=== PATIENT | male | born 1980 | race Caucasian/White ===

== ENCOUNTER 2018-10-28 15:02 | Emergency (ER) | payer MEDICAID ==
[~2018-10-28] VITALS: Ht 172.7 cm; Wt 100.0 kg
[~2018-10-28 15:02] MED LIST: CLON-527 PO; HYDR-4353 PO; METH-603 PO
[2018-10-28 15:22] VITALS: BP 135/77
== END 2018-10-28 16:21 | disposition home or self-care (01) ==
LOC: ER 15:03
DX: S90.822A Blister (nonthermal), left foot, initial encounter (principal); J45.909 Unspecified asthma, uncomplicated; G89.29 Other chronic pain; Z98.890 Other specified postprocedural states; Z79.899 Other long term (current) drug therapy; X58.XXXA Exposure to other specified factors, initial encounter; Y93.89 Activity, other specified; Y92.89 Other specified places as the place of occurrence of the external cause; Y99.8 Other external cause status
CPT/HCPCS: 99282

== ENCOUNTER 2018-11-17 17:43 | Emergency (ER) | payer MEDICAID ==
[~2018-11-17] VITALS: Ht 182.9 cm; Wt 102.0 kg
[2018-11-17 17:56] VITALS: BP 144/86
[2018-11-17] MEDS ORDERED: NICO-687 TOP (18:20)
== END 2018-11-17 18:39 | disposition home or self-care (01) ==
LOC: ER 17:43
DX: F19.10 Other psychoactive substance abuse, uncomplicated (principal); F12.90 Cannabis use, unspecified, uncomplicated; F15.90 Other stimulant use, unspecified, uncomplicated; F11.90 Opioid use, unspecified, uncomplicated; J45.909 Unspecified asthma, uncomplicated; G89.29 Other chronic pain; F17.200 Nicotine dependence, unspecified, uncomplicated; Z79.899 Other long term (current) drug therapy
CPT/HCPCS: 99282

== ENCOUNTER 2018-11-21 13:28 | Emergency (ER) | payer MEDICAID ==
[~2018-11-21] VITALS: Ht 182.9 cm; Wt 81.4 kg
[~2018-11-21 13:28] MED LIST changes: +NICO-687 TOP
[2018-11-21 13:45] VITALS: BP 121/84
[2018-11-21] MEDS ORDERED: SERT25TA PO (14:43)
[2018-11-21] MEDS ORDERED: ATOM40CA PO (14:43)
[2018-11-21] MEDS ORDERED: sertraline 50mg tablet PO ONE (14:45)
== END 2018-11-21 15:05 | disposition home or self-care (01) ==
LOC: ER 13:29
DX: R51 Headache (principal); J45.909 Unspecified asthma, uncomplicated; G89.29 Other chronic pain; F12.90 Cannabis use, unspecified, uncomplicated; F15.90 Other stimulant use, unspecified, uncomplicated; Z76.0 Encounter for issue of repeat prescription; Z98.890 Other specified postprocedural states; Z79.899 Other long term (current) drug therapy
CPT/HCPCS: 99283

== ENCOUNTER 2019-02-25 11:12 | Emergency (ER) | payer MEDICAID ==
[~2019-02-25] VITALS: Ht 182.9 cm; Wt 98.0 kg
[~2019-02-25 11:12] MED LIST changes: +ATOM40CA PO; -NICO-687 TOP; +SERT25TA PO
[2019-02-25 11:15] VITALS: BP 121/84
== END 2019-02-25 11:49 | disposition home or self-care (01) ==
LOC: ER 11:12
DX: Z02.89 Encounter for other administrative examinations (principal); J45.909 Unspecified asthma, uncomplicated; G89.29 Other chronic pain; F12.90 Cannabis use, unspecified, uncomplicated; F15.90 Other stimulant use, unspecified, uncomplicated; Z79.899 Other long term (current) drug therapy
CPT/HCPCS: 99281

== ENCOUNTER 2019-04-15 17:21 | Emergency (ER) | payer MEDICAID ==
[~2019-04-15] VITALS: Ht 185.4 cm; Wt 94.0 kg
[2019-04-15 17:33] VITALS: BP 139/89
[2019-04-15] MEDS ORDERED: ciprofloxacin 0.3% 2.5ml ophthalmic solution RIGHTEYE ONE (18:55)
== END 2019-04-15 19:33 | disposition left against medical advice (07) ==
LOC: ER 17:21
DX: S05.11XA Contusion of eyeball and orbital tissues, right eye, initial encounter (principal); J45.909 Unspecified asthma, uncomplicated; G89.29 Other chronic pain; F12.90 Cannabis use, unspecified, uncomplicated; F15.90 Other stimulant use, unspecified, uncomplicated; F19.90 Other psychoactive substance use, unspecified, uncomplicated; Z79.899 Other long term (current) drug therapy; W26.9XXA Contact with unspecified sharp object(s), initial encounter; Y93.89 Activity, other specified; Y92.89 Other specified places as the place of occurrence of the external cause; Y99.8 Other external cause status
CPT/HCPCS: 99282

== ENCOUNTER 2019-05-30 03:07 | Emergency (ER) | payer MEDICAID ==
[~2019-05-30] VITALS: Ht 182.9 cm; Wt 86.4 kg
[2019-05-30 03:08] VITALS: BP 143/98
[2019-05-30] MEDS ORDERED: ondansetron 4mg rapidly disintigrating tab PO ONE (03:45)
[2019-05-30] MEDS ORDERED: cephalexin 250mg capsule PO ONE (03:45)
[2019-05-30] MEDS ORDERED: DOXYCYCLINE 100MG CAPSULE PO STA (03:45)
[2019-05-30] MEDS ORDERED: CEPH250T PO (03:47)
[2019-05-30] MEDS ORDERED: DOXY100C77 PO (03:47)
== END 2019-05-30 04:03 | disposition home or self-care (01) ==
LOC: ER 03:08
DX: L03.113 Cellulitis of right upper limb (principal); J45.909 Unspecified asthma, uncomplicated; G89.29 Other chronic pain; F12.90 Cannabis use, unspecified, uncomplicated; F15.90 Other stimulant use, unspecified, uncomplicated; Z98.890 Other specified postprocedural states; Z79.899 Other long term (current) drug therapy
CPT/HCPCS: 99284

== ENCOUNTER 2019-06-04 23:28 | Emergency (ER) | payer MEDICAID ==
[~2019-06-04] VITALS: Ht 182.9 cm; Wt 86.4 kg
[~2019-06-04 23:28] MED LIST changes: +CEPH250T PO; +DOXY100C77 PO
[2019-06-04 23:36] VITALS: BP 133/89
== END 2019-06-05 00:14 | disposition home or self-care (01) ==
LOC: ER 23:28
DX: L03.011 Cellulitis of right finger (principal); F41.9 Anxiety disorder, unspecified; G89.29 Other chronic pain; F12.90 Cannabis use, unspecified, uncomplicated; F15.90 Other stimulant use, unspecified, uncomplicated; Z79.899 Other long term (current) drug therapy; Z98.890 Other specified postprocedural states; Z86.19 Personal history of other infectious and parasitic diseases; Z00.00 Encounter for general adult medical examination without abnormal findings; Z02.89 Encounter for other administrative examinations
CPT/HCPCS: 99281

== ENCOUNTER 2019-07-23 18:27 | Emergency (ER) | payer MEDICAID ==
[~2019-07-23] VITALS: Ht 182.9 cm; Wt 79.5 kg
[~2019-07-23 18:27] MED LIST changes: -DOXY100C77 PO
[2019-07-23 18:34] VITALS: BP 100/65
[2019-07-23 19:39] LABS: HIV ANTIBODY 1&2 RAPID NON-REACTIVE (Neg)
[2019-07-25 08:12] LABS: HEP B CORE AB, IGM Negative (Negative); HEP B CORE AB, TOT Negative (Negative); HEPATITIS C ANTIBODY >11.0 s/co ratio (0.0-0.9)
== END 2019-07-23 19:46 | disposition home or self-care (01) ==
LOC: ER 18:27
DX: Z00.00 Encounter for general adult medical examination without abnormal findings (principal); J45.909 Unspecified asthma, uncomplicated; G89.29 Other chronic pain; F12.90 Cannabis use, unspecified, uncomplicated; F15.90 Other stimulant use, unspecified, uncomplicated; F19.90 Other psychoactive substance use, unspecified, uncomplicated; Z86.19 Personal history of other infectious and parasitic diseases; Z79.2 Long term (current) use of antibiotics; Z79.899 Other long term (current) drug therapy
CPT/HCPCS: 36415; 86703; 86704; 86705; 86706; 86803; 99283

== ENCOUNTER 2019-09-13 15:41 | Emergency (ER) | payer MEDICAID ==
[~2019-09-13] VITALS: Ht 182.9 cm; Wt 81.8 kg
[2019-09-13 15:51] VITALS: BP 126/73
[2019-09-13] MEDS ORDERED: MUPI22OI30 TP (16:08)
[2019-09-13] MEDS ORDERED: SULF1TAB49 PO (16:08)
== END 2019-09-13 16:17 | disposition home or self-care (01) ==
LOC: ER 15:42
DX: L02.414 Cutaneous abscess of left upper limb (principal); L98.9 Disorder of the skin and subcutaneous tissue, unspecified; J45.909 Unspecified asthma, uncomplicated; G89.29 Other chronic pain; F12.90 Cannabis use, unspecified, uncomplicated; F15.90 Other stimulant use, unspecified, uncomplicated; F17.200 Nicotine dependence, unspecified, uncomplicated; Z86.19 Personal history of other infectious and parasitic diseases; Z79.2 Long term (current) use of antibiotics; Z79.899 Other long term (current) drug therapy
CPT/HCPCS: 99283

== ENCOUNTER 2019-11-23 13:42 | Emergency (ER) | payer MEDICAID ==
[~2019-11-23] VITALS: Ht 177.8 cm; Wt 90.0 kg
[2019-11-23 13:45] VITALS: BP 135/91
== END 2019-11-23 14:26 | disposition home or self-care (01) ==
LOC: ER 13:43
DX: F15.10 Other stimulant abuse, uncomplicated (principal); J45.909 Unspecified asthma, uncomplicated; G89.29 Other chronic pain; F12.90 Cannabis use, unspecified, uncomplicated; Z86.19 Personal history of other infectious and parasitic diseases; Z98.890 Other specified postprocedural states; Z79.2 Long term (current) use of antibiotics; Z79.899 Other long term (current) drug therapy
CPT/HCPCS: 99281

== ENCOUNTER 2020-07-14 11:48 | Emergency (ER) | payer MEDICAID ==
[~2020-07-14] VITALS: Ht 182.9 cm; Wt 97.7 kg
[~2020-07-14 11:48] MED LIST changes: -CEPH250T PO
[2020-07-14] MEDS ORDERED: LIDOcaine 1% W/epiNEPHrine 1:200,000 10ml vial IJ ONE (14:30)
[2020-07-14] MEDS ORDERED: CEPH250T PO (14:30)
[2020-07-14] MEDS ORDERED: SULF1TAB45 PO (14:30)
[2020-07-14 14:35] VITALS: BP 129/92
== END 2020-07-14 14:57 | disposition home or self-care (01) ==
LOC: ER 11:49
DX: K13.0 Diseases of lips (principal); J45.909 Unspecified asthma, uncomplicated; G89.29 Other chronic pain; M54.9 Dorsalgia, unspecified; F12.10 Cannabis abuse, uncomplicated; F15.10 Other stimulant abuse, uncomplicated; Z79.899 Other long term (current) drug therapy
CPT/HCPCS: 10060; 99283

== ENCOUNTER 2021-08-16 02:30 | Emergency (ER) | payer MEDICAID ==
[~2021-08-16] VITALS: Ht 182.9 cm; Wt 102.3 kg
[2021-08-16 02:36] VITALS: BP 146/95
== END 2021-08-16 04:18 | disposition left against medical advice (07) ==
LOC: ER 02:31
DX: J00 Acute nasopharyngitis [common cold] (principal); Z53.21 Procedure and treatment not carried out due to patient leaving prior to being seen by health care provider

== ENCOUNTER 2021-10-24 18:16 | Emergency (ER) | payer MEDICAID ==
[~2021-10-24] VITALS: Ht 182.9 cm; Wt 95.5 kg
[2021-10-24 18:20] VITALS: BP 151/89
[2021-10-24] MEDS ORDERED: sulfamethoxazole/trimethoprim DS (800/160mg) tablet PO ONE (22:40)
[2021-10-24] MEDS ORDERED: HYDROcodone/acetaminophen 5mg/325mg tablet PO ONE (22:40)
[2021-10-24] MEDS ORDERED: cephalexin 500mg capsule PO ONE (22:40)
[2021-10-24] MEDS ORDERED: SULF1TAB49 PO ×3 (22:42→22:44)
[2021-10-24] MEDS ORDERED: CEPH500C81 PO ×3 (22:42→22:44)
== END 2021-10-24 23:08 | disposition home or self-care (01) ==
LOC: ER 18:16
DX: L03.115 Cellulitis of right lower limb (principal); J45.909 Unspecified asthma, uncomplicated; G89.29 Other chronic pain; M54.50 Low back pain, unspecified; F15.20 Other stimulant dependence, uncomplicated; F12.90 Cannabis use, unspecified, uncomplicated
CPT/HCPCS: 99284